=== PATIENT | male | born 1995 | race Caucasian/White ===

== ENCOUNTER 2020-09-29 16:43 | Emergency (ER) | payer OTHER ==
[~2020-09-29] VITALS: Ht 193 cm; Wt 70.5 kg
[2020-09-29] MEDS ORDERED: FLUORESCEIN OPHTH 1 MG STRIP OS ONE (20:20)
[2020-09-29] MEDS ORDERED: BOOSTRIX/ADACEL VACCINE (DIPHTH/PERTUSS/ACELL/TETANUS) 0.5ML SYR IM ONE (20:20)
[2020-09-29] MEDS ORDERED: TETRACAINE 0.5% OPHTH SOLN 4ML OS ONE (20:25)
[2020-09-29] MEDS ORDERED: POLYSOL OS (20:49)
[2020-09-29] MEDS ORDERED: POLYTRIM OPTH DROPS 10ML OS STA (20:50)
[2020-09-29 21:13] VITALS: BP 124/91
== END 2020-09-29 21:24 | disposition home or self-care (01) ==
LOC: M ED 16:43
DX: S05.02XA Injury of conjunctiva and corneal abrasion without foreign body, left eye, initial encounter (principal); X58.XXXA Exposure to other specified factors, initial encounter; Y92.89 Other specified places as the place of occurrence of the external cause